=== PATIENT | female | born 1995 | race Caucasian/White ===

== ENCOUNTER 2019-06-09 11:18 | Inpatient (IN) | payer BC ==
[~2019-06-09] VITALS: Ht 162.6 cm; Wt 90.1 kg
[2019-06-09] VITALS (14 sets, daily range): BP systolic 105–144; BP diastolic 65–89
--- NOTE | 2019-06-09 11:10 | NUR ---
Dr Boston called this RN with pt report and orders prior to pt arrival. states that pt is 36 wks and 6 days, 1, 1 cm yesterday and 2 cm today, UC q 3-4 min, GBS negative. Dr Boston is sending her to LD now for monitoring, start iv, d5lr at 250 for a couple hours. will come to recheck SVE. Pt does not want to labor due to estimated large size, therefore if pt laboring, will plan for CS. If not laboring/UC stop, pt may go home. Aide SHARP taking care of pt upon arrival.
--- NOTE | 2019-06-09 11:10 | NUR ---
KARINE ANDERSON presented to unit via AMBULATORY from DR RAMIREZ OFFICE, with c/o CONTRACTIONS. KARINE ANDERSON weighed, gowned, voided, and to bed. EFHM and TOCO applied, VS taken. KARINE ANDERSON oriented to bed controls, call light, TV, heat, and A/C controls.
[2019-06-09] MEDS ORDERED: D5 LR IV SOLUTION 1,000 ML IV ONE (11:35)
[2019-06-09] MEDS ORDERED: D5 LR IV SOLUTION 1,000 ML IV SCH ×3 (11:45→17:49)
--- NOTE | 2019-06-09 11:55 | NUR ---
#20g IV to Lt.wrist x1 attempt by this RN. site patent, secured with opsite. admission labs collected prior to IVF's infusing. see eMar for further
[2019-06-09 12:12] LABS: BASOPHILS % (AUTO) 0 % (0-10); EOSINOPHILS # (AUTO) 0.1 10^3/uL (0.0-0.3); EOSINOPHILS % (AUTO) 1 % (0-10); HEMATOCRIT 40 % (35-52); HEMOGLOBIN 13.8 G/DL (11.5-16.0); LYMPHOCYTES % (AUTO) 20 % (12-44); MEAN CORPUSCULAR HEMOGLOBIN 30 PG (25-34); MEAN CORPUSCULAR HGB CONC 35 G/DL (32-36); MEAN CORPUSCULAR VOLUME 87 FL (80-99); MEAN PLATELET VOLUME 9.7 FL (7.4-10.4); MONOCYTES # (AUTO) 0.8 X 10^3 (0.0-1.0); MONOCYTES % (AUTO) 8 % (0-12); NEUTROPHILS # (AUTO) 7.4 X 10^3 (1.8-7.8); NEUTROPHILS % (AUTO) 71 % (42-75); PLATELET COUNT 186 10^3/uL (130-400); RED CELL DISTRIBUTION WIDTH 13.9 % (10.0-14.5); WHITE BLOOD COUNT 10.3 10^3/uL (4.3-11.0)
[2019-06-09 12:53] LABS: BAND NEUTROPHILS 1 %; BASOPHILS % (MANUAL) 0 %; EOSINOPHILS % (MANUAL) 0 %; LYMPHOCYTES % (MANUAL) 22 %; MONOCYTES % (MANUAL) 4 %; NEUTROPHILS % (MANUAL) 73 %; RBC MORPH NORMAL
[2019-06-09] MEDS ORDERED: ceFAZolin INJECTION 2,000 MG in WATER (STERILE) FOR INJECTION 10 ML IV ONE (13:00)
[2019-06-09] MEDS ORDERED: metroNIDAZOLE 500MG/100ML IVPB 100 ML IV NR (13:00)
[2019-06-09] MEDS ORDERED: ceFAZolin 2 GM/50 ML (PRE-MIXED) IV NR (13:00)
--- NOTE | 2019-06-09 13:03 | History & Physical ---
History and Physical Date Seen by Provider: Jun 09, 2019 Time Seen by Provider: 12:58 The patient is a 23-year-old prima gravid white female with a due date of July 01, 2019 putting her now 36-6/7 weeks' gestation. She was seen in my clinic yest bernard and found angy every 3-5 minutes. Her cervix was dilated 1 cm. She was followed up in my clinic on this date for NST and recheck her labor. She was dilating more rigorously and still about every 2-5 minutes. Her cervix was 2 cm dilated and 80 percent effaced. She was sent to labor and delivery for evaluation and IV hydration. She received IV fluids contractions were continued. Her cervix is now dilated 3 cm and 80-90 percent effaced +1+2 station. Patient requesting primary delivery. Surgical risks complication recovering follow-up fully discussed including the likelihood for need for repeat for future deliveries. Patient accepts the risk and prefers to proceed with delivery to avoid the trauma and discomfort of a vaginal delivery. GBS culture was negative after 35 weeks gestation. Allergies are none Medications are vitamins Medical social and surgical histories are per the antepartum record HEENT exam is normal Neck is no lymphadenopathy no thyromegaly Abdomen is gravid soft nontender nondistended Extremities show no clubbing cyanosis. There is no Homans sign. Pelvic exam currently shows a cervix 3 cm dilated 80-90 percent effaced vertex presentation with the presenting part at the +1+2 station. Patient is excee dingly uncomfortable with her pain at this point and is requesting pain control and versus labor Laboratory Tests 06/09/19 11:55 Assessment and plan 36-6/7 weeks' gestation with labor. Patient has requested primary delivery and is ready to this point to proceed with her progressing in labor spontaneously. 36 week labor and intolerance of labor Allergies and Home Medications Allergies Coded Allergies: No Known Drug Allergies (Unverified , 06/09/19) Patient Home Medication List Home Medication List Reviewed: Yes ORALIA OAKES MD Jun 09, 2019 13:03
[2019-06-09] MEDS ORDERED: FAMOTIDINE 20MG/2ML IV (PEPCID) ONE (13:04)
[2019-06-09] MEDS ORDERED: METOCLOPRAMIDE INJ 10 MG/2 ML (REGLAN) ONE (13:04)
[2019-06-09] MEDS ORDERED: CITRIC ACID/SOB CIT (BICITRA) 30 ML UDC ONE (13:04)
[2019-06-09] MEDS ORDERED: LACTATED RINGERS 1,000 ML IV ONE (13:04)
[2019-06-09] MEDS ORDERED: IBUP-1780 PO (13:05)
[2019-06-09] MEDS ORDERED: OXYC1TAB12 PO (13:05)
[2019-06-09] MEDS ORDERED: DOCU-143 PO (13:05)
--- NOTE | 2019-06-09 13:06 | Discharge Inst-Surgical ---
Discharge Inst-Surgical Depart Medication/Instructions New, Converted or Re-Newed RX: RX on Chart Consults/Follow Up Patient Instructions: As directed Orders & Referrals Follow Up Appt: RTC 1 week for incision check. Call to make follow up appt. for patient in 4 weeks. Wound Care: Remove eloy, apply benzoin and steri strips. Activity Per routine post instructions. Please call in RX to patient pharmacy. Diet as tolerated Patient may shower or tub bathe as desired. Continue home meds Activity Activity as Tolerated: No Diet Discharge Diet: No Restrictions ORALIA OAKES MD Jun 09, 2019 13:06
--- NOTE | 2019-06-09 13:12 | NUR ---
consent signed, placed on chart.
[2019-06-09] MEDS: LACTATED RINGERS 1,000 ML IV PRN ×2 (13:13→15:47)
--- NOTE | 2019-06-09 13:13 | NUR ---
anesthesia @ bedside. c/s time changed to 1600 r/t NPO status.
[2019-06-09] MEDS ORDERED: METOCLOPRAMIDE INJ 10 MG/2 ML (REGLAN) IV ONE (14:45)
[2019-06-09] MEDS ORDERED: CITRIC ACID/SOB CIT (BICITRA) 30 ML UDC PO ONE (14:45)
[2019-06-09] MEDS ORDERED: FAMOTIDINE 20MG/2ML IV (PEPCID) IV ONE (14:45)
[2019-06-09] MEDS ORDERED: fentaNYL INJECTION 100 MCG/2 ML AMP ONE (16:44)
[2019-06-09] MEDS ORDERED: KETAMINE/NaCl 50 MG/5 ML SYRINGE (ED ONLY) ONE (16:44)
[2019-06-09] MEDS ORDERED: OXYTOCIN PRE-MIX DRIP 1,000 ML IV ONE (17:31)
[2019-06-09] MEDS ORDERED: BUPIVACAINE 0.5% 30 ML (SENSORCAINE) VIAL ONE (17:31)
--- OUTSIDE RECORDS SUMMARY | 2019-06-09 17:51 | XMS REPORT | Referral Summary ---
Author Author [facility] Organization [facility] Address Unknown Phone Unavailable Care Team Providers Care Value Analyst Name Role Phone No PCP, Pt States PCP Encounter VC Date(s): 09/03/14 - 09/03/14 [facility] [address] [place] [address] - Discharge Diagnosis: Abnormal vaginal bleeding Discharge Disposition: 01-Home or Self Care Attending Physician: Tali Hull PA-C Attending Physician: Provider, Immediate Care Admitting Physician: Provider, Immediate Care Vital Signs Most recent to 1 oldest [Reference Range]: Temperature Oral 36.8 degC [35.8-37.3 degC] (09/03/14 4:15 PM) Peripheral Pulse 97 bpm Rate [60-100 bpm] (09/03/14 4:15 PM) Blood Pressure 115/77 mmHg [90-140/60-90 mmHg] (09/03/14 4:15 PM) SpO2 98 % (09/03/14 4:15 PM) Problem List Condition Effective Dates Status Health Status Informan t Tobacco Active patient user(Confirmed) Allergies, Adverse Reactions, Alerts No Known Allergies Medications No Known Medications Results Chemistry Most recent to 1 oldest [Reference Range]: U Beta hCG Ql Negative [Negative] (09/03/14 5:38 PM) Microbiology Reports TEST: Herpes Simplex Culture STATUS: Auth (Verified) BODY SITE: SOURCE: Vaginal COLLECTED DATE/TIME: 09/03/14 5:31 PM Herpes Simplex Culture Herpes Simplex Virus Type 2 isolated ORGANISM:Herpes Simplex Virus Type 2 TEST: Genital Culture STATUS: Auth (Verified) BODY SITE: SOURCE: Vaginal COLLECTED DATE/TIME: 09/03/14 4:56 PM Genital Culture Normal vaginal iván present Streptococcus agalactiae - (Group B) Large amount Organisms are predictably susceptible to Beta-lactam drugs. ORGANISM:Streptococcus agalactiae (Group B) Immunizations No data available for this section Procedures No data available for this section Social History Social History Type Response Smoking Status Current every day smoker Assessment and Plan Extracted from: Title: Office Visit Note Author: Tali Hull PA-C Date : 09/03/14 Assessment/Plan Abnormal vaginal bleeding Genital culture obtained. Vesicles opened and a herpesswab wasobtained. We will treat herpes culture positive. Unable to do hanging drop as she had large amounts of bleeding. If bleeding not improved in a couple days, we'll consider ultrasound.Gonorrhea and Chlamydia cultures obtained. Recommend follow-up with primary care for further evaluation. Recommend safe sexual practices. Follow-up if symptoms worsen. Questions were answered. Patient verbalized understanding. Patient left in stable condition. Orders: Genital Culture Herpes Simplex Culture Addendum 1) and states low likelihoo d of STD by Kurtis, 2) did ride her bike for se veral miles and is wondering if it could be acne. Tali THACKER 3) if on September 06, 2014 08:15:57 CDT
--- OUTSIDE RECORDS SUMMARY | 2019-06-09 17:52 | XMS REPORT | Continuity of Care Document ---
Author Organization Unknown Address Unknown Phone Unavailable Allergies Active Description Code Type Severity Reaction Onset Reported/Identified Relationship to Patient Clinical Status Yes No Known Allergies NKMA N/A N/A 09/03/2014 Yes No Known Drug Allergies [id number] Drug Allergy Unknown N/A 06/09/2019 Medications There is no data. Problems There is no data. Procedures There is no data. Results Test Result Range Urine Culture, Routine - 09/28/18 15:33 Urine Culture, Routine Note SHAKIRA MTN SPOTTED FEV, IGG, QNT #[id number] - 11/27/16 07:58 SHAKIRA MTN SPOTTED FEV IGM, QNT #[id number] - 11/27/16 07:58 LIVER PROFILE - 04/29/18 11:43 TOTAL BILI 0.86 MG/DL 0.00-1.00 DIRECT BILI 0.17 MG/DL 0.00-0.30 AST/SGOT 15 U/L 5-40 ALT/SGPT 13 U/L 5-40 ALK PHOS 66 U/L 34-114 TOTAL PROTEIN 7.1 G/DL 5.9-8.4 ALBUMIN 4.7 G/DL 3.2-5.2 GLOBULIN 2.4 G/DL 2.0-4.4 Blood CBC with ordered manual differenti al panel - 06/09/19 11:55 Blood leukocytes automated count (number/volume) 10.3 10*3/uL 4.3-11.0 Blood erythrocytes automated count (number/volume) 4.59 10*6/uL 4.35-5.85 Venous blood hemoglobin measurement (mass/volume) 13.8 g/dL 11.5-16.0 Blood hematocrit (volume fraction) 40 % 35-52 Automated erythrocyte mean corpuscular volume 87 [ foz_us] 80-99 Automated erythrocyte mean corpuscular h emoglobin (mass per erythrocyte) 30 pg 25-34 Automated erythrocyte mean corpuscular h emoglobin concentration measurement (mass/volume) 35 g/dL 32-36 Automated erythrocyte distribution width ratio 13. 9 % 10.0- 14.5 Automated blood platelet count (count/volume) 186 10*3/uL 130-400 Automated blood platelet mean volume measurement 9.7 [foz_us] 7.4-10.4 Automated blood neutrophils/100 leukocytes 71 % 42-75 Automated blood lymphocytes/100 leukocytes 20 % 12-44 Blood monocytes/100 leukocytes 4 % NRG Automated blood eosinophils/100 leukocytes 1 % 0-10 Automated blood basophils/100 leukocytes 0 % 0-10 Blood neutrophils automated count (number/volume) 7.4 10*3 1.8-7.8 Blood lymphocytes automated count (number/volume) 2.0 10*3 1.0-4.0 Blood monocytes automated count (number/volume) 0. 8 10*3 0.0-1.0 Automated eosinophil count 0.1 10*3/uL 0 .0-0.3 Automated blood basophil count (count/volume) 0.0 10*3/uL 0.0-0.1 Manual blood segmented neutrophils/100 leukocytes 73 % NRG Blood band neutrophils/100 leukocytes 1 % NRG Manual blood lymphocytes/100 leukocytes 22 % NRG Manual eosinophils/100 leukocytes in nose 0 % NRG Manual blood basophils/100 leukocytes 0 % NRG Blood erythrocyte morphology finding identification NORMAL NRG Blood type T Indirect antibody screen [facility] - 06/09/19 11:55 WRISTBAND NUMBER [id number] NRG ABO+Rh group OP NRG Blood group antibody screen NEGATIVE NR G Encounters ACCT No. Visit Date/Time Discharge Status Pt. Type Provider Facility Loc./Unit Complaint [id number] 09/03/2014 15:31:00 015 23:59:00 DIS Outpatient Tali Hull [facility] Mur IC STD CHECK [id number] 09/30/2018 08:36:00 Document Registration [id number] 10/02/2016 09:17:00 Document Registration [id number] 06/09/2019 12:43:[address] Inpatient VIOLETTE MCLEOD, ORALIA Rhoades [facility] LDRP LABOR [id number] 02/25/2017 15:00:00 02/25/2017 23:59: 59 CLS Outpatient Darryn Borges [facility] [id number] 04/29/2018 11:45:00 Document Registration [id number] 11/27/2016 07:50:00 Document Registration
--- OUTSIDE RECORDS SUMMARY | 2019-06-09 17:52 | XMS REPORT ---
Author Author Jocy Borges [facility] Address [address] [place] [address] Care Team Providers Care Cage Clerk Name Role Phone WhitleyDarryn tavares Unavailable PROBLEMS Type Condition ICD9-CM Code [id number] Code Onset Dates Condition S tatus SNOMED Code Problem Food intolerance K90.4 Active 750 57791 Problem Acute diarrhea R19.7 Active 20305 6000 Problem Carbuncle and furuncle of hand 680.4 Active [id number] ALLERGIES No Information ENCOUNTERS Encounter Location Date Diagnosis [facility] [address] [place] [address] Apr, Tinea unguium B35.1 [facility] [address] [place] [address] Mar, Nail fungus B35.1 [facility] [place] [address] [place] [address] Feb, Left foot pain M79.672 and Nail fungus B 35.1 [facility] [address] [place], [place] [phone] June, [facility] [address] [place] [address] Feb, Bronchitis, acute J20.9 [facility] [address] [place] [phone] Jan, Neck pain M54.2 [facility] [address] [place] [address] Nov, Encounter for laboratory examination Z01 .89 and Tinea unguium B35.1 [facility] [address] [place] [address] Nov, Encounter for laboratory examination Z01 .89 [facility] [address] [place] [address] Sep, Rectal bleeding K62.5 [facility] [address] [place] [address] Sep, Rectal bleeding K62.5 [facility] [address] [place] [address] Sep, [facility] [address] [place] [address] Aug, Tinea unguium B35.1 [facility] [address] [place] [address] May, Tinea unguium B35.1 [facility] [address] [place] [address] May, Tinea unguium B35.1 [facility] [address] [place] [address] Mar, Tinea unguium B35.1 [facility] [address] [place] [address] Mar, [facility] [address] [place] [address] Feb, Tinea unguium B35.1 [facility] [address] [place] [address] May, [facility] [address] [place] [address] May, [facility] [address] [place] [address] Jan, Acute diarrhea R19.7 and Food intoleranc e K90.4 [facility] [address] [place] [address] June, Fatigue 780.79 ; Snoring 786.09 and Pare sthesia and pain of left extremity 729.5 [facility] [address] [place] [address] June, Dysuria 788.1 [facility] [address] [place] [address] June, Dysuria 788.1 [facility] [address] [place] [address] Feb, Dysuria 788.1 [facility] [address] [place] [address] Sep, Routine infant or child health check V20 .2 [facility] [address] [place] [address] May, Carbuncle and furuncle of hand 680.4 [facility] [place] [address] [place] [address] Dec, [facility] [place] [address] [place] [address] Mar, [facility] [place] [address] [place] [address] Sep, [facility] [place] [address] [place] [address] Dec, [facility] [place] [address] [place] [address] Jul, IMMUNIZATIONS No Known Immunizations SOCIAL HISTORY Never Assessed REASON FOR VISIT n-f lab PLAN OF CARE Activity Details Follow Up prn Reason: VITAL SIGNS MEDICATIONS Medication Instructions Dosage Frequency Start Date End Date Duration S tatus Bentyl 20 mg Orally Four times a day, 30 min before meals 1 tablet Jan, 30 days Active Lamisil 250 MG Orally Once a day 1 tablet 24h Feb, 3 0 days Active RESULTS Name Result Date Reference Range LIVER PROFILE 2018-04-29 TOTAL BILI 0.86 0.00-1.00 DIRECT BILI 0.17 0.00-0.30 AST/SGOT 15 5-40 ALT/SGPT 13 5-40 ALK PHOS 66 34-114 TOTAL PROTEIN 7.1 5.9-8.4 ALBUMIN 4.7 3.2-5.2 GLOBULIN 2.4 2.0-4.4 PROCEDURES Procedure Date Ordered Result Body Site LIVER PROFILE April 29, 2018 INSTRUCTIONS MEDICATIONS ADMINISTERED No Known Medications MEDICAL (GENERAL) HISTORY Type Description Date Surgical History tonsillectomy
--- OUTSIDE RECORDS SUMMARY | 2019-06-09 17:52 | XMS REPORT ---
Author Author Jocy Borges [facility] Address [address] [place] [address] Care Team Providers Care Template Storage Clerk Name Role Phone Darryn Borges Unavailable PROBLEMS Type Condition ICD9-CM Code [id number] Code Onset Dates Condition S tatus SNOMED Code Problem Acute diarrhea R19.7 Active 85078 6000 Problem Food intolerance K90.4 Active 750 02120 Problem Carbuncle and furuncle of hand 680.4 Active 70644786 ALLERGIES Unknown Allergies SOCIAL HISTORY No smoking Hx information available PLAN OF CARE VITAL SIGNS MEDICATIONS Unknown Medications RESULTS No Results PROCEDURES No Known procedures IMMUNIZATIONS No Known Immunizations
--- OUTSIDE RECORDS SUMMARY | 2019-06-09 17:52 | XMS REPORT ---
Author Author Jocy Borges [facility] Address [address] [place] [address] Care Team Providers Care Senior Technical Trainer Name Role Phone Darryn Borges Unavailable PROBLEMS Type Condition ICD9-CM Code [id number] Code Onset Dates Condition S tatus SNOMED Code Problem Acute diarrhea R19.7 Active 81912 6000 Problem Food intolerance K90.4 Active 750 61576 Problem Carbuncle and furuncle of hand 680.4 Active 36025499 ALLERGIES Unknown Allergies SOCIAL HISTORY No smoking Hx information available PLAN OF CARE Activity Details Follow Up prn Reason: Pending Test Clostridium Diff (C Diff) To gabriella A + B by EIA #[id number] Pending Test Stool Culture #[id number] VITAL SIGNS MEDICATIONS Unknown Medications RESULTS No Results PROCEDURES Procedure Date Ordered Related Diagnosis Body Site C DIF Toxin/s Sep 28, 2016 Shiga-like toxin Sep 28, 2016 STOOL CULTURE Sep 28, 2016 STOOL CULTR BACTERI Sep 28, 2016 IMMUNIZATIONS No Known Immunizations
--- OUTSIDE RECORDS SUMMARY | 2019-06-09 17:52 | XMS REPORT ---
Author Author Jocy Borges [facility] Address [address] [place] [address] Care Team Providers Care Transformer Repairer Name Role Phone Darryn Borges Unavailable PROBLEMS Type Condition ICD9-CM Code [id number] Code Onset Dates Condition S tatus SNOMED Code Problem Acute diarrhea R19.7 Active 51636 6000 Problem Food intolerance K90.4 Active 750 72665 Problem Carbuncle and furuncle of hand 680.4 Active 74249943 ALLERGIES Unknown Allergies SOCIAL HISTORY No smoking Hx information available PLAN OF CARE VITAL SIGNS MEDICATIONS Medication Instructions Dosage Frequency Start Date End Date Duration S tatus Terbinafine HCl 250 MG Orally Once a day 1 tablet 24h Feb, 30 days Active RESULTS No Results PROCEDURES No Known procedures IMMUNIZATIONS No Known Immunizations
--- OUTSIDE RECORDS SUMMARY | 2019-06-09 17:52 | XMS REPORT ---
Author Author Jocy Borges Organization [employer] Address Unknown Phone Unavailable Care Team Providers Care Clubhouse Manager Name Role Phone Darryn Borges CP Unavailable Allergies, Adverse Reactions, Alerts Substance Reaction Event Type N.K.D.A. Info Not Available Non Drug Allergy Problems Problem Type Condition Code Onset Dates Condition Statu s Problem Food intolerance K90.4 Active Problem Carbuncle and furuncle of hand 680.4 Active Problem Acute diarrhea R19.7 Active Assessment Acute diarrhea R19.7 Active Assessment Food intolerance K90.4 Active Medications Medication Code System Code Instructions Start Date End Date Status Dosage Bentyl [facility] [address]-98 20 mg Orally Four times a d ay, 30 min before meals Feb 11, 2015 1 tablet Procedures Procedure Coding System Code Date OFFICE VISITEST PT CPT-4 83006 Feb 11, 2015 Vital Signs Date/Time: Feb 11, 2015 Blood Pressure Systolic 122 mm Hg Height 64.25 in Weight 157 lbs BMI 26.74 Index Temperature 97.7 F Blood Pressure Diastolic 76 mm Hg Results No Known Results Summary Purpose [employer] Submission
--- OUTSIDE RECORDS SUMMARY | 2019-06-09 17:52 | XMS REPORT ---
Author Author Jocy Borges Organization [employer] Address Unknown Phone Unavailable Care Team Providers Care Steel Post Installer Supervisor Name Role Phone Darryn Borges CP Unavailable Allergies, Adverse Reactions, Alerts Substance Reaction Event Type N.K.D.A. Info Not Available Non Drug Allergy Problems Problem Type Condition Code Onset Dates Condition Statu s Assessment Fatigue 780.79 Active Assessment Snoring 786.09 Active Problem Carbuncle and furuncle of hand 680.4 Active Assessment Paresthesia and pain of left extremity 729.5 Active Medications Medication Code System Code Instructions Start Date End Date Status Dosage Nasonex [facility] [address]-37 50 MCG/ACT Nasally Once a day July 06, 2014 2 sprays in each nostril Procedures Procedure Coding System Code Date COMP PROFILE CPT-4 24153 July 06, 2014 TSH CPT-4 27224 July 06, 2014 CBC CPT-4 33624 July 06, 2014 OFFICE VISITEST PT CPT-4 29630 July 06, 2014 Vital Signs Date/Time: July 06, 2014 Blood Pressure Systolic 120 mm Hg Height 64.25 in Weight 166 lbs BMIPercentile 90.26 % Wt Percentile 90.08 % BMI 28.27 Index Blood Pressure Diastolic 72 mm Hg Results No Known Results Summary Purpose [employer] Submission
--- OUTSIDE RECORDS SUMMARY | 2019-06-09 17:52 | XMS REPORT ---
Author Author Jocy Mojica [facility] Address [address] [place] [address] Care Team Providers Care Behavior Specialist Name Role Phone Stuart Mojica Unavailable PROBLEMS Type Condition ICD9-CM Code [id number] Code Onset Dates Condition S tatus SNOMED Code Problem Acute diarrhea R19.7 Active 26860 6000 Problem Food intolerance K90.4 Active 750 25781 Problem Carbuncle and furuncle of hand 680.4 Active 76721450 ALLERGIES No Known Allergies SOCIAL HISTORY Never Assessed PLAN OF CARE Activity Details Follow Up prn Reason: VITAL SIGNS Weight 183.4 lbs 2017-02-25 Height 64.25 in 2017-02-25 Temperature 98.7 degrees Fahrenheit 2017-02-25 BMI 31.23 kg/m2 2017-02-25 Blood pressure systolic 106 mm Hg 2017-02-25 Blood pressure diastolic 74 mm Hg 2017-02-25 MEDICATIONS Medication Instructions Dosage Frequency Start Date End Date Duration S tatus Bentyl 20 mg Orally Four times a day, 30 min before meals 1 tablet Jan, 30 days Active Zithromax Z-Dong 250 MG Orally Once a day 2 tablet on the day, then 1 tablet daily for 4 days 24h Feb, 5 day(s) Acti ve RESULTS No Results PROCEDURES No Known procedures IMMUNIZATIONS No Known Immunizations MEDICAL (GENERAL) HISTORY Type Description Date Surgical History tonsillectomy
--- OUTSIDE RECORDS SUMMARY | 2019-06-09 17:52 | XMS REPORT ---
Author Author Jocy Borges [facility] Address [address] [place] [address] Care Team Providers Care Dial Equipment Engineer Name Role Phone Darryn Borges Unavailable PROBLEMS Type Condition ICD9-CM Code LUX20-EQ Code Onset Dates Condition S tatus SNOMED Code Problem Acute diarrhea R19.7 Active 94099 6000 Problem Food intolerance K90.4 Active 750 51103 Problem Carbuncle and furuncle of hand 680.4 Active 15135521 ALLERGIES Unknown Allergies SOCIAL HISTORY No smoking Hx information available PLAN OF CARE Activity Details Follow Up prn Reason: VITAL SIGNS MEDICATIONS Unknown Medications RESULTS No Results PROCEDURES Procedure Date Ordered Related Diagnosis Body Site LIVER PROFILE June 12, 2016 IMMUNIZATIONS No Known Immunizations
--- OUTSIDE RECORDS SUMMARY | 2019-06-09 17:52 | XMS REPORT ---
Author Author Jocy Borges [facility] Address [address] [place] [address] Care Team Providers Care Hot Mill Shearer Name Role Phone Darryn Borges Unavailable PROBLEMS Type Condition ICD9-CM Code [id number]-GT Code Onset Dates Condition S tatus SNOMED Code Problem Acute diarrhea R19.7 Active 40313 6000 Problem Food intolerance K90.4 Active 750 25602 Problem Carbuncle and furuncle of hand 680.4 Active 31448369 ALLERGIES Unknown Allergies SOCIAL HISTORY No smoking Hx information available PLAN OF CARE VITAL SIGNS MEDICATIONS Medication Instructions Dosage Frequency Start Date End Date Duration S tatus Terbinafine HCl 250 MG Orally Once a day 1 tablet 24h Feb, 30 days Active RESULTS No Results PROCEDURES No Known procedures IMMUNIZATIONS No Known Immunizations
[2019-06-09] MEDS ORDERED: KETOROLAC 30 MG/ML VIAL ONE (17:59)
[2019-06-09] MEDS: KETOROLAC 30 MG/ML VIAL IVP SCH (18:00)
[2019-06-09] MEDS ORDERED: MEASLES,MUMPS,RUBELLA 1 EA INJ SC ONE (18:00)
[2019-06-09] MEDS: OXYTOCIN PRE-MIX DRIP 500 ML IV SCH ×2 (18:00→21:12)
[2019-06-09] MEDS ORDERED: ONDANSETRON 4 MG/2 ML (SDV) Z0FRAN IVP PRN (18:00)
[2019-06-09] MEDS ORDERED: TETANUS,DIPTH,PERTUSS P/F (BOOSTRIX) 0.5 ML VIAL IM ONE (18:00)
[2019-06-09] MEDS ORDERED: DOCUSATE SODIUM 100 MG (COLACE) CAP PO SCH (21:00)
[2019-06-09] MEDS: DOCUSATE SODIUM 100 MG (COLACE) CAP PO SCH (21:12)
[2019-06-09] MEDS: oxyCODONE/APAP 10/325MG (PERCOCET 10) TABLET PO PRN (21:16)
--- NOTE | 2019-06-09 21:18 | OPERATIVE REPORT ---
DATE OF SERVICE: 06/09/2019 PREOPERATIVE DIAGNOSES: A 36 and 6/7 weeks' gestation and labor with high station and request for primary delivery and intolerance of labor. POSTOPERATIVE DIAGNOSES: A 36 and 6/7 weeks' gestation and labor with high station and request for primary delivery and intolerance of labor. OPERATIVE PROCEDURE: Primary low transverse delivery of a viable male infant with Apgars of 8 and 9 at 1 and 5 minutes respectively, weight 7 pounds 7 ounces, cord blood pH of 7.30 and a time of 17:30. OPERATIVE DESCRIPTION: With the patient in the supine position under satisfactory spinal analgesia, she was prepped and draped in the usual fashion for abdominal surgery. Perez catheter was placed in the urinary bladder. A Pfannenstiel incision made through the skin with scalpel, the patient's abdomen entered in the usual manner. Bladder retractor placed in position. Clean scalpel used to make a 4 cm hysterotomy incision transversely across the lower uterine segment. That was extended by blunt dissection as well, releasing a small amount of amniotic fluid that was clear. The incision was extended bluntly and then Bonilla forceps were applied to facilitate the delivery of the vigorous male . With the stats were noted as above. Bonilla forceps were used to facilitate delivery to avoid excessive upper abdominal pressure as the head was relatively high station and did not come down even to the incision with a moderate to abdominal compression. The infant was bulb suctioned on delivery of the head and again on completion of delivery. Umbilical cord was doubly clamped and cut and the infant passed to the pediatric nurse in attendance for delivery. Cord bloods were obtained. The placenta delivered spontaneously Earl. It was normal with a 3-vessel cord. The uterus was exteriorized and interior wiped clean with a wet laparotomy sponge. Uterine incision closed with a running locked suture of 2-0 Vicryl. Hemostasis was complete. The uterus was returned to the abdominal cavity. All blood clot and debris removed from the abdominal cavity. With sponge, needle counts correct, hemostasis assured. The anterior parietal peritoneum was closed with running suture of 2-0 Vicryl. Rectus muscles were closed with that suture as well. The rectus fascia was closed with 2-0 Vicryl, subcutaneous tissue was closed with 2-0 Vicryl and the skin was stapled. Sponge and needle counts were correct on completion of the procedure. Estimated blood loss was around 400 mL. The patient tolerated the procedure well and was transferred to recovery room in stable condition. The infant was taken stable to the full term nursery under the care of the pediatric nurse. 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
--- NOTE | 2019-06-09 22:30 | NUR ---
Pt. up to bathroom with aid at this time. Tolerated well. Unable to void at this time. Will try again soon.
--- NOTE | 2019-06-09 22:45 | NUR ---
Pt. took equipment to pump at this time. Equipment and pumping process explained. No questions or concerns at this time.
--- NOTE | 2019-06-09 23:25 | NUR ---
Pt. up to bathroom with nurse assist. Pt. voided 200ml of urine into hat. Pt. back to bed with help.
[2019-06-10] MEDS: KETOROLAC 30 MG/ML VIAL IVP SCH ×2 (00:16→05:55)
[2019-06-10 00:26] VITALS: BP 147/91
[2019-06-10] MEDS: oxyCODONE/APAP 10/325MG (PERCOCET 10) TABLET PO PRN ×2 (03:00→08:52)
[2019-06-10 04:30] VITALS: BP 130/80
--- NOTE | 2019-06-10 06:05 | NUR ---
Dressing and IV removed. Pt. tolerated well. Pt now up to bathroom. Pt voided. Clean pad and underwear put on. Pt. back to bed. No questions or concerns at this time.
--- NOTE | 2019-06-10 08:37 | NUR ---
DR. OAKES TO PT'S BEDSIDE.
[2019-06-10 08:50] VITALS: BP 136/80
[2019-06-10] MEDS: DOCUSATE SODIUM 100 MG (COLACE) CAP PO SCH (08:52)
--- NOTE | 2019-06-10 08:58 | Progress Note ---
Standard Progress Note Progress Notes/Assess & Plan Date Seen by a Provider: Jun 10, 2019 Time Seen by a Provider: 08:57 Progress/Assessment & Plan This patient is without complaint. She is ablating, voiding, tolerating oral intake well has good pain control. Patient is requesting discharge home. She reports that her baby is doing well at [facility]. Vital Signs Date Time Temp Pulse Resp B/P (MAP) Pulse Ox O2 Delivery O2 Flow Rate FiO2 06/10/19 08:50 36.2 87 18 136/80 (98) 98 Room Air 06/10/19 04:30 36.5 77 18 130/80 (97) 97 Room Air 06/10/19 00:26 36.5 82 18 147/91 (109) 97 Room Air 06/09/19 20:00 36.6 69 18 138/72 (94) 100 Room Air 06/09/19 18:50 36.3 18 121/88 (99) 99 Room Air 06/09/19 18:50 Room Air 06/09/19 18:50 36.2 75 19 144/70 (94) 99 Room Air 06/09/19 18:43 Room Air 06/09/19 18:40 18 117/89 (98) 100 Room Air 06/09/19 18:30 Room Air 06/09/19 18:30 18 116/67 (83) 99 Room Air 06/09/19 18:20 18 113/65 (81) 99 Room Air 06/09/19 18:15 Room Air 06/09/19 18:10 18 116/65 (82) 100 Room Air 06/09/19 18:00 36.5 18 105/69 (81) 100 Room Air 06/09/19 18:00 Room Air 06/09/19 16:55 71 18 129/77 (94) Room Air 06/09/19 16:40 74 18 121/77 (92) Room Air 06/09/19 16:25 73 18 119/75 (90) Room Air 06/09/19 16:10 73 18 129/82 (98) Room Air 06/09/19 15:55 90 18 138/78 (98) Room Air 06/09/19 15:40 36.9 78 18 134/71 (92) Room Air 06/09/19 11:16 37.0 100 18 98 Room Air 06/09/19 11:16 37.0 100 18 139/76 (97) 98 Room Air I & O 06/10/19 07:00 Intake Total 500 ml Output Total 50 ml Balance 450 ml Vital signs are stable. Patient is afebrile. The abdomen is benign. Fundus is firm below the umbilicus and nontender. The surgical incision is clean dry and intact. Extremities show no clubbing cyanosis. There is no Homans sign. There is some pretibial pitting edema that is within normal limits. Assessment and plan postoperative day number 1 status post primary delivery at 36-6/7 weeks' gestation. Patient doing well. We will allow discharge home. She may revisit her baby at the [facility]. Plan is for follow-up in clinic Final Diagnosis 36-6/7 weeks' primary delivery ORALIA OAKES MD Jun 10, 2019 08:58
--- NOTE | 2019-06-10 09:00 | NUR ---
DISCHARGE PAPERS PROVIDED AND REVIEWED WITH PT, PT VERBALIZES UNDERSTANDING AND DENIES ANY QUESTIONS AT THIS TIME. PAPER SIGNED. S/O PRESENT AT THE BEDSIDE.
--- NOTE | 2019-06-10 09:08 | NUR ---
RX'S CALLED INTO [facility].
--- NOTE | 2019-06-10 09:35 | NUR ---
PT TRANSFERRED FROM -[facility] TO PERSONAL AUT[facility] VIA W/C IN STABLE CONDITION ACC BY S/O AND KRISH MCLAIN RN.
[2019-06-10] MEDS ORDERED: IBUPROFEN 800 MG (MOTRIN) TAB PO SCH (18:00)
--- NOTE | 2019-06-10 18:04 | Anesthesia-Regional Post-Op ---
Regional Patient Condition Mental Status: Alert, Oriented x3 Circulation: Same as Pre-Op Headache: Absent Sensation: Full Recovery Motor Block: Absent Post Op Complications Complications None Follow Up Care/Instructions Patient Instructions None needed. Anesthesia/Patient Condition Patient was doing well, no complaints, stable vital signs, no apparent adverse anesthesia problems. No complications reported per nursing, thus patient discharged at 0830 this morning as baby was transferred out. YVONNE DICKENS CRNA Jun 10, 2019 18:04
== END 2019-06-10 09:35 | disposition home or self-care (01) | DRG 788 ==
LOC: WSo 11:18 → LDRP 11:18 → WSo 12:43 → LDRP 19:36
PROVIDERS: ADMIT Obstetrics & Gynecology; ATTEND Obstetrics & Gynecology
PROC: 10D00Z1 Extraction of Products of Conception, Low, Open Approach (ICD-10-PCS; principal; 2019-06-09 17:07)
DX: O60.14X0 Preterm labor third trimester with preterm delivery third trimester, not applicable or unspecified (principal); O75.89 Other specified complications of labor and delivery; O32.4XX0 Maternal care for high head at term, not applicable or unspecified; Z3A.36 36 weeks gestation of pregnancy; Z37.0 Single live birth
CPT/HCPCS: 36415; 85007; 85027; 86850; 86900; 86901